=== PATIENT | female | born 1980 | race Caucasian/White ===

== ENCOUNTER 2020-08-15 13:24 | Emergency (ER) | payer OTHER, SELFPAY ==
[2020-08-15 13:50] VITALS: BP 103/65; PULSE 66; RESP 18; TEMP 36.9; O2SAT 100
--- NOTE | 2020-08-15 14:00 | ED.DENTAL ---
HPI - Dental/Oral General Chief complaint: Dental/Oral Stated complaint: Jaw Pain Source: patient Mode of arrival: ambulatory Limitations: no limitations History of Present Illness HPI Narrative: Patient is a 40-year-old female who presents complaining of left jaw pain x2 days. She reports increased pain with eating and swallowing. She denies chest pain, shortness of breath. She has no significant medical history. She does not smoke. She reports no dental pain. She reports taking ibuprofen with moderate relief of pain. Related Data Home Medications Medication Instructions Recorded Confirmed No Home Medications 08/15/20 08/15/20 Allergies Allergy/AdvReac Type Severity Reaction Status Date / Time doxycycline Allergy Unknown Rash Verified 08/15/20 13:37 Penicillins Allergy Unknown Rash Verified 08/15/20 13:37 Review of Systems Review of Systems: Narrative: CONSTITUTIONAL: Denies fever, chills, or sweats. EYES: Denies visual changes, redness, or discharge. ENT: Left jaw pain CARDIOVASCULAR: Denies chest pain, palpitations, or edema. RESPIRATORY: Denies cough or dyspnea. GASTROINTESTINAL: Denies abdominal pain, nausea, vomiting, or diarrhea. GENITOURINARY: Denies dysuria or hematuria. SKIN: Denies rash or itching. MUSCULOSKELETAL: Denies back pain, joint pain, or myalgia. NEUROLOGIC: Denies headache, numbness, dizziness, or weakness. PSYCHIATRIC: Denies anxiety or depression. [facility] Past Medical History Medical History No significant past medical history Surgical History Surgical History H/O dilation and curettage H/O sinus surgery Family History Family History (Updated 08/15/20 @ 14:02 by TERENCE Lau) Other No significant family history Social History Social History Smoking status: Never smoker Alcohol intake: never Substance use: never Living arrangements: with family Comments At the time of signature, I have reviewed and agree with nursing past medical, surgical, social, and family history unless otherwise noted. Please see nursing chart for further information. There is no relevant family history pertinent to the presenting complaint. Exam Narrative: Exam Narrative: GENERAL: Well-appearing, well-nourished, and in no acute distress. HEAD: Normocephalic, atraumatic. EYES: EOMI. No redness or drainage. Conjunctiva are normal. ENT: Mucous membranes pink and moist. Nares clear. No rhinorrhea. TMs normal bilaterally. Throat normal. Uvula midline. Pain with palpation to left TMJ joint. No erythema, warmth or edema. No signs of dental abscess. NECK: AROM. Supple. No lymphadenopathy. CHEST: No respiratory distress. EXTREMITIES: Normal range of motion. SKIN: Warm, dry, no rash. NEURO: No focal deficits. Alert and oriented x3. Gait steady. PSYCH: Normal affect. No signs of depression or anxiety. Course Vital Signs Vital signs: Vital Signs Temperature 36.9 C 08/15/20 13:50 Pulse Rate 66 08/15/20 13:50 Respiratory Rate 18 08/15/20 13:50 Blood Pressure 103/65 08/15/20 13:50 Pulse Oximetry 100 08/15/20 13:50 Temperature 36.9 C 08/15/20 13:50 Pulse Rate 66 08/15/20 13:50 Respiratory Rate 18 08/15/20 13:50 Blood Pressure 103/65 08/15/20 13:50 Pulse Oximetry 100 08/15/20 13:50 Reviewed MDM - Dental/Oral MDM Narrative Medical decision making narrative: Patient most likely has TMJ. Patient has appointment with dentist tomorrow. Patient instructed to follow up with her dentist tomorrow for further evaluation of teeth and jaw. Discussed taking [id number] medications for pain, use of heat and massage. Patient is stable for discharge home with outpatient follow-up as directed. Differential Diagnosis Differential diagnosis: Likely other (TMJ) Medical Records Attestation: I
== END 2020-08-15 14:16 | disposition home or self-care (01) ==
PROVIDERS: Emergency Provider Nurse Practitioner
DX: R68.84 Jaw pain (principal)
CPT/HCPCS: 99213; G0463

== ENCOUNTER 2023-05-20 12:49 | Emergency (ER) | payer OTHER, SELFPAY ==
[2023-05-20 12:56] VITALS: BP 131/77; PULSE 94; RESP 14; TEMP 37.2; O2SAT 100
--- NOTE | 2023-05-20 12:58 | ED.URI ---
HPI - URI/Sore Throat General Chief Complaint: Upper Respiratory Infection Stated Complaint: Sore Throat/Sinus Source: patient and RN notes reviewed History of Present Illness HPI Narrative: 42 yo F presents to urgent care with complaints of runny nose, congestion, and post--nasal drip x 2 days. Pt states she thought it was allergies on Friday but Friday they were worse so she has been taking Sudafed and Claritin. Pt is concerned b/c she leaves for [place] in 2 days and doesn't want anything to get worse. Denies any fevers, chills N/V/D, chest pain, SOB, sore throat, or ear pain. Related Data Allergies Allergy/AdvReac Type Severity Reaction Status Date / Time doxycycline Allergy Unknown Rash Verified 05/20/23 13:02 Penicillins Allergy Unknown Rash Verified 05/20/23 13:02 Review of Systems Review of Systems: Pertinent positives and pertinent negatives per HPI. [facility] Past Medical History Medical History No significant past medical history Surgical History Surgical History H/O dilation and curettage H/O sinus surgery Family History Family History (Updated 08/15/20 @ 14:02 by Shanice Johnson, TERENCE) Other No significant family history Social History Social History Smoking status: Never smoker Alcohol intake: never Substance use: never Living arrangements: with family Comments At the time of my signature, I reviewed and agree with the nursing past medical, surgical, social, and family history. There is no relevant family history pertinent to the patient complaint. Exam Narrative: GENERAL: This is a well-nourished, well-developed patient, in no apparent distress. HEAD: normocephalic, atraumatic. EYES: Sclera clear/white. Vision is grossly intact. EARS: External ears normal, auditory canals clear and without drainage, TMs normal without perforation. Hearing grossly intact. NOSE: External nose normal with no obvious nasal discharge, nares without redness, no rhinorrhea. THROAT: Mucous membranes moist, posterior pharynx clear. NECK: Neck supple, non-tender without lymphadenopathy, masses or thyromegaly. CARDIOVASCULAR: Regular rate and rhythm without murmurs, gallops, or rubs. RESPIRATORY: Clear to auscultation. Breath sounds equal bilaterally. No wheezes, rales, or rhonchi. GASTROINTESTINAL: Abdomen soft, non-tender, nondistended. Bowel sounds are active. No hepato-splenomegaly, or palpable masses. No guarding. SKIN: warm, intact with no suspicious lesions or rash, good texture and turgor. NEURO: awake, alert, and oriented to person, place and time. There were no obvious focal neurologic abnormalities. EXTREMITIES: No clubbing, cyanosis, or edema. No joint tenderness, effusion, or edema noted. BACK: Nontender without deformity or crepitus. No flank tenderness. Course Course Level of Care: Express Care Visit Vital Signs Vital signs: Vital Signs Temperature 98.9 F 05/20/23 12:56 Pulse Rate 94 05/20/23 12:56 Respiratory Rate 14 05/20/23 12:56 Blood Pressure 131/77 05/20/23 12:56 Pulse Oximetry 100 05/20/23 12:56 Oxygen Delivery Room Air 05/20/23 12:56 Temperature 98.9 F 05/20/23 12:56 Pulse Rate 94 05/20/23 12:56 Respiratory Rate 14 05/20/23 12:56 Blood Pressure 131/77 05/20/23 12:56 Pulse Oximetry 100 05/20/23 12:56 Oxygen Delivery Room Air 05/20/23 12:56 Reviewed MDM - URI/Sore Throat MDM Narrative Medical decision making narrative: Pt is requesting an Abx that she can take down to [place] in case things get worse. Pt will be prescribed Augmentin and was instructed not to take it unless her symptoms worsen over the next week. Pt agrees and gives verbal understanding. Viral illness may last between 7-12days; antibiotic is NOT recommended at this time. Recommend antihistamine such as
== END 2023-05-20 13:19 | disposition home or self-care (01) ==
PROVIDERS: Emergency Provider Nurse Practitioner Family
DX: J06.9 Acute upper respiratory infection, unspecified (principal)
CPT/HCPCS: 87081; 87880; 99213; G0463